=== PATIENT | male | born 1980 | race Two or more races ===

== ENCOUNTER 2018-05-27 14:57 | Emergency (ER) | payer MEDICAID ==
[~2018-05-27] VITALS: Ht 172.7 cm; Wt 72.6 kg
[2018-05-27 15:09] VITALS: BP 133/76
--- NOTE | 2018-05-27 15:09 | NUR ---
ED Nurse Note: Patient tootie from the street c/o right hip pain, patient states that he was skateboarding and fell on the right side of body .patient does have a skin tear on the right elbow, patient complains of 8/10 right hip and right hand pain. patient is alert and oriented x4, patient is able to wiggle toes and is able to move right leg but with pain
[2018-05-27] MEDS ORDERED: HYDROcodone/Acetamin 5/325 tab ORAL ONE (15:15)
[2018-05-27] MEDS ORDERED: Bacitracin Oint UD TOPIC ONE (15:30)
--- NOTE | 2018-05-27 15:48 | Diagnostic Imaging Report ---
Indication: Hand pain Technique: 3 views right hand Comparison: none Findings: No acute fractures. No dislocations. The joint spaces are preserved. No radiopaque foreign body Impression: Negative
--- NOTE | 2018-05-27 15:49 | Emergency Room Report ---
History of Present Illness General Chief Complaint: Multiple Trauma/Fall Source: Patient Present Illness HPI 37 YO Male presents to the ed for c/o fall while skateboarding boarding. no KO, didn't hit head. He denies midline neck or back pain. Patient reports pain is exacerbated upon weightbearing/walking he denies any relieving factors. Patient states that currently his pain is 8 out of 10 in severity and localized to the right lateral hip. Pt. also has pain / TTP and swelling to the right hand. he states he is right hand dominant. Denies numbness tingling or loss of sensation or gross motor movements of the extremities, incontinence of bowel or bladder. Denies CP, Palpitations, LOC, AMS, dizziness, Changes in Vision, weakness or a sudden severe headache. Allergies: Coded Allergies: No Known Allergies (Unverified , 05/27/18) Patient History Past Medical History: see triage record Past Surgical History: none Pertinent Family History: none Reviewed Nursing Documentation: PMH: Agreed; PSxH: Agreed Nursing Documentation-PMH Past Medical History: No Stated History Review of Systems All Other Systems: negative except mentioned in HPI Physical Exam Vital Signs Date Time Temp Pulse Resp B/P (MAP) Pulse Ox O2 Delivery O2 Flow Rate FiO2 05/27/18 15:05 98.6 82 16 133/76 99 Room Air Sp02 EP Interpretation: reviewed, normal General Appearance: alert, GCS 15, non-toxic, moderate distress Head: normocephalic, atraumatic Eyes: bilateral eye normal inspection, bilateral eye PERRL ENT: hearing grossly normal, normal voice Neck: full range of motion Respiratory: chest non-tender, lungs clear, normal breath sounds, speaking full sentences Cardiovascular #1: regular rate, rhythm, normal capillary refill Gastrointestinal: soft, no guarding Musculoskeletal: back normal, gait/station normal, normal range of motion, tender - lateral aspect of the right hip. no bruises, no obvious deformities. Pt also with ttp to the right hand, no snuff box ttp, swelling is noted. , NVI Neurologic: alert, oriented x3, responsive, motor strength/tone normal, sensory intact, speech normal, grossly normal Psychiatric: judgement/insight normal Skin: normal color, no rash, warm/dry, well hydrated, abrasions - lateral right elbow Medical Decision Making PA Attestation Dr. Henderson is my supervising Physician whom patient management has been discussed with. Diagnostic Impression: Primary Impression: Greater trochanteric bursitis of right hip Additional Impressions: Elbow abrasion Qualified Codes: S50.311A - Abrasion of right elbow, initial encounter Contusion of hand, right Qualified Codes: S60.221A - Contusion of right hand, initial encounter ER Course 37 YO Male presents to the ed for c/o fall while skateboarding boarding. no KO, didn't hit head. He denies midline neck or back pain. Patient reports pain is exacerbated upon weightbearing/walking he denies any relieving factors. Patient states that currently his pain is 8 out of 10 in severity and localized to the right lateral hip. Pt. also has pain / TTP and swelling to the right hand. he states he is right hand dominant. Denies numbness tingling or loss of sensation or gross motor movements of the extremities, incontinence of bowel or bladder. Denies CP, Palpitations, LOC, AMS, dizziness, Changes in Vision, weakness or a sudden severe headache. Ddx considered but are not limited to Fracture, dislocation, contusion, Sprain/ Strain/Spasm, Epidural abscess, Neoplastic mets. Vital signs: are WNL, pt. is afebrile H&PE are most consistent with musculoskeletal injury will perform imaging to r/ o fractures/dislocations. ORDERS: - X-ray Right Hip 2 views - POSITIVE for fx, Dislocation, or significant soft tissue injury, per preliminary read in ED, and signed by WILLIAM Back , my supervising physician has reviewed, and agrees with my interpretation. CT : same ED INTERVENTIONS: - NOrco PO -Patient is provided with crutches and instructed on their use Orthopedic consult with Dr. Suarez him states that the patient is able to follow up as an outpatient with his current injury THis pt. will be provided Dr. Suarez's information for follow-up. -I do not identify an emergent condition at this time. With current presentation , pt. is stable for close outpatient follow up and conservative treatment. D/ w pt. to return promptly to ED with worsening or new symptoms.- Pt. verbalizes' understanding and agreement with proposed treatment plan.proposed treatment plan. DISCHARGE: At this time pt. is stable for d/c to home. Will provide printed patient care instructions, and any necessary prescriptions. Care plan and follow up instructions have been discussed with the patient prior to discharge. Other X-Ray Diagnostic Results Other X-Ray Diagnostic Results : X-Ray ordered: Right Hand # of Views/Limited Vs Complete: 3 View Indication: Pain EP Interpretation: Yes PA Xray: Interpretation reviewed, by supervising MD, and agrees with findings. Interpretation: no dislocation, no soft tissue swelling, no fractures, other - mildly displaced great trochanteric fx. Impression: No acute disease Electronically Signed by: Deepali Back PA-C CT/MRI/US Diagnostic Results CT/MRI/US Diagnostic Results : Imaging Test Ordered: CT PELVIS Impression * confirms x-ray reads- fx , no through and through, although not displaced -- Per official radiology report- Please see report for specific details. Last Vital Signs Date Time Temp Pulse Resp B/P (MAP) Pulse Ox O2 Delivery O2 Flow Rate FiO2 05/27/18 15:09 82 16 Room Air 05/27/18 15:09 98.6 133/76 99 Status: improved Disposition: HOME, SELF-CARE Condition: Stable Physician Consult: Dr. Suarez ( ORTHO) Scripts Trimethoprim/Sulfamethoxazole 160/800* (BACTRIM DS TABLET*) 1 Each Tablet 1 TAB ORAL TWICE A DAY for 7 Days, #14 TAB Prov: Deepali Back 05/27/18 Cephalexin* (KEFLEX*) 500 Mg Capsule 500 MG ORAL EVERY 12 HOURS for 7 Days, #14 CAP 0 Refills Prov: Deepali Back 05/27/18 Hydrocodone Bit/Acetaminophen 5-325* (NORCO 5-325*) 1 Each Tablet 1 TAB ORAL Q6H PRN for For Pain, #15 TAB 0 Refills Prov: Deepali Back 05/27/18 Referrals: Johann Suarez MD Departure Forms: Return to Work Return to Work Date: Jun 03, 2018 Work Restrictions: No Heavy Lifting, No Prolonged Standing Other Restrictions: Return to be determined by [employer]. Return to Full Activity: Jun 03, 2018 Patient Instructions: Hip Fracture Additional Instructions: Take medications as directed. Follow up with an [employer] in 3-5 days, even if your symptoms have resolved. --Please review list of primary care clinics, if you do not already have a primary care provider who can give you an Orthopedic Referral. Return sooner to ED if new symptoms occur, or current symptoms become worse. Do not drink alcohol, drive, or operate heavy machinery while taking [place] as this may cause drowsiness. - Please note that this Emergency Department Report was dictated using [employer] technology software, occasionally this can lead to erroneous entry secondary to interpretation by the dictation equipment. Deepali Back May 27, 2018 15:49
--- NOTE | 2018-05-27 16:21 | Diagnostic Imaging Report ---
Indication: Right hip pain Technique: 2 views of the right hip Comparison: None Findings: There is a fracture of the right greater trochanter. No through and through fracture demonstrated. Impression: Positive for right greater trochanter fracture. No definite through and through fracture. Findings discussed by phone with Dr. Hnederson in the emergency room at the time of interpretation.
--- NOTE | 2018-05-27 16:55 | Diagnostic Imaging Report ---
Indication: Right hip pain, status post fall, abnormal radiograph Technique: Noncontrast spiral acquisitions obtained through the pelvis. Multiplanar reconstructions generated. Total dose length product 359.34 mGycm. CTDIvol(s) 10.43 mGy. Dose reduction achieved using automated exposure control Comparison: Plain radiograph of one hour earlier Findings: There is a nondisplaced fracture of the right greater trochanter. This may slightly comminuted. No through and through fracture demonstrated. No other evidence of acute fracture. No dislocations. The joint spaces are preserved. There are degenerative changes of the right hip there is minimal edema of the bilateral buttock subcutaneous fat. No definite significant soft tissue contusion demonstrated. Impression: Positive for isolated right greater trochanteric fracture. No evidence of through and through fracture. Findings discussed by phone with Deepali Back in the emergency room at the time of interpretation The CT scanner at [facility] is accredited by the [employer] and the scans are performed using protocols designed to limit radiation exposure to as low as reasonably achievable to attain images of sufficient resolution adequate for diagnostic evaluation.
[2018-05-27] MEDS ORDERED: CEPHALEXIN500 MG ORAL (17:54)
[2018-05-27] MEDS ORDERED: BACTRIM DS TAB1 EAC1 ORAL (17:54)
[2018-05-27] MEDS ORDERED: NORCO 5-325 TA1 EACH ORAL (17:54)
[2018-05-27 18:13] VITALS: BP 127/78
--- NOTE | 2018-05-27 18:15 | NUR ---
ER DISCHARGE NOTE: Patient is cleared to be discharged per ERMD, pt is aox4, on room air, with stable vital signs. pt was given dc and prescription instructions, pt was able to verbalize understanding, pt id band removed. pt is able to ambulate with steady gait by using crutches. pt took all belongings.
== END 2018-05-27 18:15 | disposition home or self-care (01) ==
LOC: EDBD 14:57 → EMR 15:35
DX: M70.61 Trochanteric bursitis, right hip (principal); S50.311A Abrasion of right elbow, initial encounter; S60.221A Contusion of right hand, initial encounter; S72.114A Nondisplaced fracture of greater trochanter of right femur, initial encounter for closed fracture; V00.131A Fall from skateboard, initial encounter; Y93.51 Activity, roller skating (inline) and skateboarding; Y92.9 Unspecified place or not applicable
CPT/HCPCS: 72192; 99284